=== PATIENT | female | born 1945 | race Caucasian/White ===

== ENCOUNTER 2017-09-24 16:05 | Observation (INO) ==
--- NOTE | 2017-09-24 17:20 | Emergency Department Note ---
Disposition Clinical Impression: Chest pain Disposition: Admitted As Inpatient Condition: Fair Referrals: Roxanne Agosto CNP [Primary Care Provider] - Forms: ED Satisfaction Letter Time of Disposition: 18:44 Chest Pain HPI - General Chief Complaint: ED Chest Pain Stated Complaint: CP/EMANUEL Time Seen by Provider: 09/24/17 16:20 Source: patient Limitations: no limitations Vital Signs Reviewed: Yes Nursing Notes Reviewed: Yes - History of Present Illness HPI Narrative: Complains of chest pain which started 4 days ago and was intermittent for the first 2 days and now has been constant with associated diaphoresis and dyspnea and she does not have a pleuritic aspect. Does feel a sharp pain between her shoulder blades however states her chest pain does not radiate to the shoulders. Does feel that her legs are swollen. No leg pain. No fevers or any blood in the urine or stool. Social history: Smoker, no alcohol. Family history: Positive for her father with heart disease. The patient did have ablation on September 02 and I did review this record Severity scale (1-10): 7 - Related Data Home Medications Medication Instructions Recorded Confirmed Losartan [Cozaar] 25 mg PO BID 12/18/16 09/24/17 Paroxetine HCl [Paxil] 40 mg PO HS 12/18/16 09/24/17 Ascorbate Calcium [Vitamin C] 500 mg PO DAILY 04/23/17 09/24/17 Albuterol Sulfate [Albuterol 2 puff IH QID PRN 09/02/17 09/24/17 Inhaler] Diltiazem CD (24hr) [Cardizem CD] 120 mg PO DAILY 09/02/17 09/24/17 Metoprolol Succinate 25 mg PO DAILY 09/02/17 09/24/17 Naproxen Sodium [Aleve] 220 mg PO DAILY PRN 09/02/17 09/24/17 Metformin HCl [Metformin HCl ER] 500 mg PO BID 09/24/17 09/24/17 Allergies Allergy/AdvReac Type Severity Reaction Status Date / Time acetaminophen [From Percocet] AdvReac Nausea Verified 04/23/17 09:13 codeine AdvReac Nausea Verified 04/23/17 09:13 Hydromorphone [From Dilaudid] AdvReac Dizziness Verified 04/23/17 09:13 Oxycodone [From Percocet] AdvReac Nausea Verified 04/23/17 09:13 Review of Systems: Constitutional: No fever Vision: No blurred vision ENT: No rhinorrhea Respiratory: No cough Allergic: No allergies : No blood in urine GI: No blood in stool Hematologic: No bruising Dermatologic: No skin rash Musculoskeletal: No pain in the extremities Neuro: No numbness of the extremities Chest Pain PMH - Past Medical History Medical history: Reports: atrial fibrillation, COPD, diabetes, hypertension, seizures, other Surgical history: Reports: appendectomy, cataract, cholecystectomy, hysterectomy Psychiatric history: Reports: anxiety, depression, prior suicide attempt - Social History Smoking Status: Current every day smoker Alcohol use: Reports: none Drug use: Reports: none Physical Exam CONSTITUTIONAL: Well-appearing; well-nourished; A&O X 3, in no apparent distress HEAD: Normocephalic; atraumatic EYES: PERRL, no scleral icterus NOSE: The nose is normal in appearance without rhinorrhea NECK: No JVD or distended neck veins RESP: Normal chest excursion with respiration; breath sounds clear and equal bilaterally; no wheezes, rhonchi, or rales CARD: Regular rhythm, without murmurs, rub or gallop ABD: Non-distended; non-tender, soft, without rigidity, rebound or guarding,no pulsatile mass CHEST: Patient does have pain with palpation anterior chest wall SKIN: Normal for age and race; warm and dry without diaphoresis ; no apparent lesions EXTREMITIES: Pulses are 2 plus and equal times 4 extremities, no peripheral edema or calf muscle pain - General Limitations: no limitations General appearance: alert Course Vital Signs Temperature 97.7 F 09/24/17 16:37 Pulse Rate 83 09/24/17 16:37 Respiratory Rate 18 09/24/17 16:37 Blood Pressure 170/82 09/24/17 16:37 O2 Sat by Pulse Oximetry 97 09/24/17 16:37 Temperature 97.7 F 09/24/17 16:37 Pulse Rate 81 09/24/17 17:11 Respiratory Rate 16 09/24/17 17:11 Blood Pressure 167/104 09/24/17 17:11 O2 Sat by Pulse Oximetry 96 09/24/17 17:11 Oxygen Delivery Oxygen Delivery Room Air Chest Pain - MDM Narrative Medical decision making narrative: I did review her EKG showing normal sinus rhythm rate of 82 without acute ischemic change. Patient does have labs ordered and is pending including troponin level and BNP and the patient will likely be admitted due to her pain which is exertional as well as associated diaphoresis or dyspnea and her history of smoking and family history of heart disease. 1720 I did review the patient's labs without acute abnormality and this chest x-ray is negative and the hospitalist is paged. 1828 Case was discussed with the hospitalist who accepts the patient for admission will be monitored for arrhythmia, serial troponin 1844 - Medical Records Medical records reviewed: Yes I reviewed the patient's medical records. - Lab Data Lab results reviewed: Yes I reviewed the patient's lab results. Result diagrams: 09/24/17 17:06 09/24/17 17:06 Lab Results 09/24/17 09/24/17 09/24/17 Range/Units 17:06 17:06 17:06 WBC 10.3 (4.3-11.1) K/mcL RBC 4.81 (3.82-4.97) M/mcL Hgb 13.1 (11.5-15.4) g/dL Hct 40.3 (35.3-44.9) % MCV 83.8 (83.0-100.0) fL MCH 27.2 L (28.0-33.3) pg MCHC 32.5 (31.6-35.5) g/dL RDW 13.8 (11.5-14.5) % Plt Count 236 (140-400) K/mcL MPV 9.1 L (9.4-12.4) fL Immature Gran % 0.5 (0-4) % Seg Neutrophils % 64.8 % Lymphocytes % 25.3 % Monocytes % 6.4 % Eosinophils % 2.5 % Basophils % 0.5 % Neutrophils # 6.7 (1.6-8.9) K/mcL Lymphocytes # 2.6 (0.6-4.6) K/mcL Monocytes # 0.7 (0.0-1.3) K/mcL Eosinophils # 0.3 (0.0-0.6) K/mcL Basophils # 0.1 (0.0-0.2) K/mcL PT 11.0 (9.4-12.1) Seconds INR 1.0 APTT 29.1 (26.0-36.0) Seconds Sodium 138 (136-145) mEq/L Potassium 3.7 (3.5-5.1) mEq/L Chloride 105 (98-107) mEq/L Carbon Dioxide 28 (23-29) mEq/L BUN 16 (8-23) mg/dL Creatinine 0.88 (0.60-1.20) mg/dL Est GFR ( Amer) > 60 (> 60) Est GFR (Non-Af Amer) > 60 (> 60) BUN/Creatinine Ratio 18 (6-26) Glucose 127 H (70-105) mg/dL Calculated Osmolality 289 (280-300) Calcium 9.2 (8.6-10.3) mg/dL Troponin I (< 0.04) ng/mL B-Natriuretic Peptide (Less than 100) pg/mL 09/24/17 09/24/17 Range/Units 17:06 17:06 WBC (4.3-11.1) K/mcL RBC (3.82-4.97) M/mcL Hgb (11.5-15.4) g/dL Hct (35.3-44.9) % MCV (83.0-100.0) fL MCH (28.0-33.3) pg MCHC (31.6-35.5) g/dL RDW (11.5-14.5) % Plt Count (140-400) K/mcL MPV (9.4-12.4) fL Immature Gran % (0-4) % Seg Neutrophils % % Lymphocytes % % Monocytes % % Eosinophils % % Basophils % % Neutrophils # (1.6-8.9) K/mcL Lymphocytes # (0.6-4.6) K/mcL Monocytes # (0.0-1.3) K/mcL Eosinophils # (0.0-0.6) K/mcL Basophils # (0.0-0.2) K/mcL PT (9.4-12.1) Seconds INR APTT (26.0-36.0) Seconds Sodium (136-145) mEq/L Potassium (3.5-5.1) mEq/L Chloride (98-107) mEq/L Carbon Dioxide (23-29) mEq/L BUN (8-23) mg/dL Creatinine (0.60-1.20) mg/dL Est GFR ( Amer) (> 60) Est GFR (Non-Af Amer) (> 60) BUN/Creatinine Ratio (6-26) Glucose (70-105) mg/dL Calculated Osmolality (280-300) Calcium (8.6-10.3) mg/dL Troponin I < 0.03 (< 0.04) ng/mL B-Natriuretic Peptide 38 (Less than 100) pg/mL - Radiology Data Radiology results reviewed: Yes I reviewed the patient's radiology results.
[2017-09-24 17:23] LABS: Basophils # 0.1 K/mcL (0.0-0.2); Basophils % 0.5 %; Eosinophils # 0.3 K/mcL (0.0-0.6); Eosinophils % 2.5 %; Hematocrit 40.3 % (35.3-44.9); Hemoglobin 13.1 g/dL (11.5-15.4); Immature Granulocytes % 0.5 % (0-4); Lymphocytes # 2.6 K/mcL (0.6-4.6); Lymphocytes % 25.3 %; Mean Corpuscular HGB Conc 32.5 g/dL (31.6-35.5); Mean Corpuscular Hemoglobin 27.2 pg (28.0-33.3); Mean Corpuscular Volume 83.8 fL (83.0-100.0); Mean Platelet Volume 9.1 fL (9.4-12.4); Monocytes # 0.7 K/mcL (0.0-1.3); Monocytes % 6.4 %; Neutrophils # 6.7 K/mcL (1.6-8.9); Platelet Count 236 K/mcL (140-400); Red Blood Count 4.81 M/mcL (3.82-4.97); Red Cell Distribution Width 13.8 % (11.5-14.5); Segmented Neutrophils % 64.8 %
[2017-09-24 17:33] LABS: Activated Partial Thrombo Time 29.1 Seconds (26.0-36.0)
[2017-09-24 17:51] LABS: BUN/Creatinine Ratio 18 (6-26); Blood Urea Nitrogen 16 mg/dL (8-23); Calcium 9.2 mg/dL (8.6-10.3); Carbon Dioxide 28 mEq/L (23-29); Chloride 105 mEq/L (98-107); Glucose 127 mg/dL (70-105); Osmolality,Calculated 289 (280-300); Potassium 3.7 mEq/L (3.5-5.1); Sodium 138 mEq/L (136-145); eGFR For African Americans > 60 (> 60); eGFR For Non-African Americans > 60 (> 60)
[2017-09-24] MEDS ORDERED: Ondansetron 4 MG/2 ML VIAL IVP PRN (19:13)
[2017-09-24] MEDS ORDERED: Ketorolac 30 MG/ML VIAL IVP PRN (19:13)
[2017-09-24] MEDS ORDERED: Naloxone 0.4 MG/ML INJ IVP PRN (19:13)
[2017-09-24] MEDS ORDERED: *HR* Dextrose 50 % in Water (Syg) 50 ML SYRINGE IVP PRN (19:25)
[2017-09-24] MEDS ORDERED: D5% in Water 1,000 ML IVC PRN (19:25)
[2017-09-24] MEDS ORDERED: Dextrose Gel 15 GM/37.5 ML TUBE PO PRN ×2 (19:25)
[2017-09-24] MEDS ORDERED: Nitroglycerin 0.4 MG TAB.SUBL SL PRN (19:26)
--- NOTE | 2017-09-24 19:30 | Internal Med History&Physical ---
Date of Encounter: 09/24/17 Time of Encounter: 19:27 Assessment and Plan (1) Chest pain Current visit: Yes Status: Acute Nitroglycerin as needed, the patient is allergic to opioids. Toradol as needed Follow troponins, telemetry Cardiology consult due to recent ablation/ SVT Lipid panel Omeprazole for GI prophylaxis and Lovenox for DVT prophylaxis. The patient will be admitted for observation. Full code. Time spent on this admission 40 minutes Qualifiers: Chest pain type: chest pain on breathing Qualified Code(s): R07.1 - Chest pain on breathing; R07.81 - Pleurodynia (2) SVT (supraventricular tachycardia) Current visit: Yes Status: Acute Recent ablation Continue Cardizem and metoprolol (3) Diabetes Current visit: Yes Status: Acute Insulin sliding scale Qualifiers: Diabetes mellitus type: type 2 Diabetes mellitus complication status: without complication Diabetes mellitus termite control servicer insulin use: without termite control servicer use Qualified Code(s): E11.9 - Type 2 diabetes mellitus without complications (4) COPD (chronic obstructive pulmonary disease) Current visit: Yes Status: Acute No exacerbation Qualifiers: COPD type: unspecified COPD Qualified Code(s): J44.9 - Chronic obstructive pulmonary disease, unspecified (5) Hypertension Current visit: Yes Status: Acute Stable Qualifiers: Hypertension type: essential hypertension Qualified Code(s): I10 - Essential (primary) hypertension Internal Medicine - H&P: HPI Chief complaint: Chest pain Admitted From: Emergency Dept History of present illness: Ms. Wahl is a 72 year old female with a past medical history of hypertension , depression, diabetes type 2 not insulin-dependent, recently treated on 2017 for SVT with an ablation which was performed by Dr. Coleman. The patient was doing okay up until the past 4 days when she started complaining of severe pressure-like chest pain radiating to the left shoulder blade especially earlier today that lasted for more than 30 minutes. Currently she is asymptomatic but earlier today that pain was accompanied by diaphoresis, shortness of breath, she felt cold and clammy. Glucose is 127 blood pressure, 170/82 chest x-ray does not show any acute cardiopulmonary disease. No other symptoms Past Med Surg Social Fam HX - Past Medical History Medical history: COPD (No oxygen dependent), diabetes (Not insulin-dependent), hyperlipidemia, hypertension, seizures (Not on medications and has not had seizures since 2007), other (SVT status post ablation, depression, neuropathy, tobacco abuse) Psychiatric history: anxiety, depression, prior suicide attempt - Past Surgical History Surgical History: appendectomy, cataract, cholecystectomy, hysterectomy, other ( Neuro stimulator due to chronic leg pain from neuropathy, bladder surgery, recent echocardiogram in 09/16/2017 showing an ejection fraction of 60% and mild diastolic dysfunction) - Social History Smoking Status: Current every day smoker Packs per day: One pack per day Smokeless Tobacco Status: No Alcohol use: none Drug use: none - Additional Family History Additional family history: Father with heart disease with a myocardial infarction in the 60s, mother had also myocardial infarction in her 60s and carotid stenosis Internal Medicine - H&P: Meds Losartan [Cozaar] 25 mg PO BID 12/18/16 [History] Paroxetine HCl [Paxil] 40 mg PO HS 12/18/16 [History] Ascorbate Calcium [Vitamin C] 500 mg PO DAILY 04/23/17 [History] Albuterol Sulfate [Albuterol Inhaler] 2 puff IH QID PRN 09/02/17 [History] Diltiazem CD (24hr) [Cardizem CD] 120 mg PO DAILY 09/02/17 [History] Metoprolol Succinate 25 mg PO DAILY 09/02/17 [History] Naproxen Sodium [Aleve] 220 mg PO DAILY PRN 09/02/17 [History] Metformin HCl [Metformin HCl ER] 500 mg PO BID 09/24/17 [History] 3 Allergy/AdvReac Type Severity Reaction Status Date / Time acetaminophen [From Percocet] AdvReac Nausea Verified 04/23/17 09:13 codeine AdvReac Nausea Verified 04/23/17 09:13 Hydromorphone [From Dilaudid] AdvReac Dizziness Verified 04/23/17 09:13 Oxycodone [From Percocet] AdvReac Nausea Verified 04/23/17 09:13 All Systems PM: A 10-system review of systems was performed and is negative for pertinent findings except as documented above in the HPI. Review of systems: No chest pain at the moment. Other systems out of the 10 reviewed were negative - Constitutional Vitals: Temp Pulse Resp BP Pulse Ox 97.7 F 71 20 170/90 97 09/24/17 16:37 09/24/17 18:46 09/24/17 18:46 09/24/17 18:46 09/24/17 18:46 General appearance: Present: A&O X 3 - Head Head exam: Present: atraumatic, normocephalic - Eye Eye exam: Present: PERRL, conjuntiva pink, sclera anicteric Pupils: Present: PERRL - Neck Neck exam general surgery: Present: supple, trachea midline. Absent: lymphadenopathy - Respiratory Respiratory exam: Present: CTAB. Absent: accessory muscle use, rales, rhonchi, wheezes - Cardiovascular Cardiovascular exam: Present: RRR, +S1, +S2. Absent: diastolic murmur, gallop, rubs, systolic murmur - GI/Abdominal GI/Abdominal exam: Present: normal bowel sounds, soft, no peritoneal signs. Absent: distended, tenderness - Extremities Exam Extremities exam: Present: warm, radial pulses palpable and symmetrical. Absent : calf tenderness, cyanotic, pedal edema - Neurological Exam Neurological exam: Present: CN II-XII intact, oriented X3, no focal deficits. Absent: pronater drift, facial droop, speech deficit - Skin Skin exam: Present: dry, intact Internal Med - H&P Results - Labs CBC & Chem 7: 09/24/17 17:06 09/24/17 17:06
[2017-09-24] MEDS: Insulin LISPRO 300 UNITS/3 ML VIAL SQ SCH ×2 (22:16→22:17)
[2017-09-24] MEDS: Nicotine 21 MG PATCH.TD24 TD SCH (22:17)
[2017-09-24] MEDS: *HR* Enoxaparin 40 MG/0.4 ML SYRINGE SQ SCH (22:18)
[2017-09-24] MEDS: Diltiazem CD (24hr) 120 MG CAPSULE PO SCH (22:18)
[2017-09-24] MEDS: 0.9 % Sodium Chloride 1,000 ML IVC SCH (22:26)
[2017-09-25 02:32] LABS: Hematocrit 40.1 % (35.3-44.9); Mean Corpuscular HGB Conc 32.4 g/dL (31.6-35.5); Mean Corpuscular Hemoglobin 27.7 pg (28.0-33.3); Mean Corpuscular Volume 85.3 fL (83.0-100.0); Mean Platelet Volume 9.2 fL (9.4-12.4); Platelet Count 222 K/mcL (140-400); Red Cell Distribution Width 13.8 % (11.5-14.5)
[2017-09-25 02:52] LABS: BUN/Creatinine Ratio 18 (6-26); Blood Urea Nitrogen 16 mg/dL (8-23); Calcium 8.9 mg/dL (8.6-10.3); Carbon Dioxide 30 mEq/L (23-29); Chloride 106 mEq/L (98-107); Chol/HDL Ratio 7.8 (0-4.9); Cholesterol 243 mg/dL (< 200); Glucose 175 mg/dL (70-105); HDL Cholesterol 31 mg/dL (40-59); LDL Cholesterol,Calculated 134 mg/dL (0-99); Osmolality,Calculated 293 (280-300); Phosphorous 3.7 mg/dL (2.7-4.5); Potassium 3.7 mEq/L (3.5-5.1); Sodium 139 mEq/L (136-145); Triglycerides 389 mg/dL (< 150); eGFR For African Americans > 60 (> 60); eGFR For Non-African Americans > 60 (> 60)
[2017-09-25] MEDS: *HR* Enoxaparin 40 MG/0.4 ML SYRINGE SQ SCH (05:44)
[2017-09-25] MEDS: Diltiazem CD (24hr) 120 MG CAPSULE PO SCH (09:02)
[2017-09-25] MEDS: Metoprolol XL (24 HR) Succ 25 MG TAB.ER.24H PO SCH (09:02)
--- NOTE | 2017-09-25 10:04 | Electrocardiograph Report ---
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
[2017-09-25] MEDS: Insulin LISPRO 300 UNITS/3 ML VIAL SQ SCH ×3 (12:15→21:31)
[2017-09-25] MEDS: Nicotine 21 MG PATCH.TD24 TD SCH (12:15)
--- NOTE | 2017-09-25 12:22 | Cardiology Consult Note ---
<Julianne Garcia Андрей - Last Filed: 09/25/17 12:33> Date of Encounter: 09/25/17 Time of Encounter: 12:00 Assessment and Plan (1) Chest pain Status: Acute Troponin negative x3. No ischemic ECG changes noted. Atypical chest pain symptoms. Pain free upon exam. Significant risk factors for CAD including: HTN, tobacco abuse, family hx, and DMII. Recent TTE shows preserved LVEF with normal wall motion. Would recommend Nuclear stress test. Discussed with patient and could be scheduled as outpatient, however patient prefers to stay and have test completed as inpatient. NPO after MN tomorrow evening, will plan for stress test on Wednesday. Will continue to follow. 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 Recheck limited TTE to evaluate for pericardial effusion. Discussion w patient/family: The assessment and plan as outlined above was discussed with the patient and/or family members who expressed understanding and agreement. All questions were answered. Thank you for involving us in the care of your patient. Please call with any questions. The patient will be discussed and reviewed with Dr. Capone, changes to be made accordingly. History of Present Illness Consult date: 09/25/17 Requesting physician: Alexei Coyle Consult reason: Chest pain Chief complaint: Chest pain History of present illness: Ms. Wahl is a 72 year old female with PMHx significant for DMII, tobacco use , HTN, and SVT s/p recent ablation who presented to the ED with complaints of chest pain. She reports left scapular pain with radiation to left-sided chest pain, typically lasts seconds at a time. Associated symptoms include "fluttering " in neck, discomfort is intermittent and not related to exertion or activity. Pain subsides without intervention. Discomfort has been more frequent over the past several days which prompted ED evaluation. Prior CV testin09/02/17: successful AVNRT ablation. 09/09/17: EF 60-65%, normal wall motion Past Med Surg Social Fam HX - Past Medical History Attestation: Yes The following information was validated with the patient. Source: patient Medical history: COPD, diabetes, hyperlipidemia, hypertension, seizures, other Psychiatric history: anxiety, depression, prior suicide attempt - Past Surgical History Surgical History: appendectomy, cataract, cholecystectomy, hysterectomy, other ( SVT ablation) - Social History Smoking Status: Current every day smoker Packs per day: One pack per day Smokeless Tobacco Status: No Alcohol use: none Drug use: none - Family History Mother Hx Family Cardiac Disorders: Yes (CAD) Father Hx Family Cardiac Disorders: Yes (CAD) Medications and Allergies Losartan [Cozaar] 25 mg PO BID 12/18/16 [History] Paroxetine HCl [Paxil] 40 mg PO HS 12/18/16 [History] Ascorbate Calcium [Vitamin C] 500 mg PO DAILY 04/23/17 [History] Albuterol Sulfate [Albuterol Inhaler] 2 puff IH QID PRN 09/02/17 [History] Diltiazem CD (24hr) [Cardizem CD] 120 mg PO DAILY 09/02/17 [History] Metoprolol Succinate 25 mg PO DAILY 09/02/17 [History] Naproxen Sodium [Aleve] 220 mg PO DAILY PRN 09/02/17 [History] Metformin HCl [Metformin HCl ER] 500 mg PO BID 09/24/17 [History] 3 Allergy/AdvReac Type Severity Reaction Status Date / Time acetaminophen [From Percocet] AdvReac Nausea Verified 04/23/17 09:13 codeine AdvReac Nausea Verified 04/23/17 09:13 Hydromorphone [From Dilaudid] AdvReac Dizziness Verified 04/23/17 09:13 Oxycodone [From Percocet] AdvReac Nausea Verified 04/23/17 09:13 All Systems Review: A 10-system review of systems was performed and is negative for pertinent findings except as documented above in the HPI. - Cardiovascular Cardiovascular: as per HPI Physical Examination Vital Signs, Last 4 Hours Temp Pulse Resp BP Pulse Ox 09/25/17 11:51 98.0 F 60 14 131/75 94 General: Conversant, No Apparent Distress HEENT: Atraumatic, Normocephaly, Mucus Membranes Moist Neck: No JVD, Normal carotid pulses Cardiac: Reg Rate and Rhythm, Normal S1 and S2, No Murmur Lungs: Normal Breath Sounds, No Wheeze, Rales, Rhonchi Neuro: Alert and responsive, No focal deficits noted Abdomen: Soft, Non-Tender Skin: No rashes noted on visualized skin Musculoskeletal: No Chest Wall Tenderness Extremities: No Clubbing, No Cyanosis, No Edema, Normal Pulses Results 09/25/17 01:46 09/25/17 01:46 Lab Results 09/24/17 09/25/17 09/25/17 20:13 01:46 01:46 WBC 10.4 Hgb 13.0 Hct 40.1 Plt Count 222 Sodium Potassium Chloride Carbon Dioxide BUN Creatinine Glucose Calcium Magnesium Troponin I < 0.03 < 0.03 09/25/17 09/25/17 01:46 07:17 WBC Hgb Hct Plt Count Sodium 139 Potassium 3.7 Chloride 106 Carbon Dioxide 30 H BUN 16 Creatinine 0.90 Glucose 175 H Calcium 8.9 Magnesium 2.0 Troponin I < 0.03 Active Medications Dextrose/Water (Dextrose 50% (Syg)) 25 ml IVP AD PRN PRN Reason: Hypoglycemia Stop: 03/26/18 19:26 Diltiazem HCl (Cardizem Cd) 120 mg PO DAILY [facility] Stop: 03/26/18 19:31 Last Admin: 09/25/17 09:02 Dose: 120 mg Enoxaparin Sodium (Lovenox) 40 mg SQ 0600 [facility] PRN Reason: Protocol Stop: 03/26/18 19:26 Last Admin: 09/25/17 05:44 Dose: 40 mg Glucagon (Glucagen) 1 mg IM ONCE PRN PRN Reason: Hypoglycemia Stop: 03/26/18 19:26 Glucose (Gluctose) 15 gm PO ONCE PRN PRN Reason: Hypoglycemia Stop: 03/26/18 19:26 Glucose (Gluctose) 30 gm PO ONCE PRN PRN Reason: Hypoglycemia Stop: 03/26/18 19:26 Sodium Chloride (0.9 % Sodium Chloride) 1,000 mls @ 75 mls/hr IVC .[id number] [facility] Stop: 09/25/17 21:54 Last Infusion: 09/25/17 12:16 Dose: Infused Dextrose (Dextrose 5%) 1,000 mls @ 100 mls/hr IVC .Q10H PRN PRN Reason: HYPOGLYCEMIA Stop: 03/26/18 19:26 Insulin Human Lispro (Humalog) 0 units SQ TIDAC [facility] PRN Reason: Protocol Stop: 03/26/18 19:31 Last Admin: 09/25/17 12:15 Dose: Not Given Insulin Human Lispro (Humalog) 0 units SQ HS [facility] PRN Reason: Protocol Stop: 03/26/18 21:01 Last Admin: 09/24/17 22:17 Dose: Not Given Ketorolac Tromethamine (Toradol) 30 mg IVP Q6HR PRN PRN Reason: Moderate Pain (4-6) Stop: 09/29/17 19:14 Losartan Potassium (Cozaar) 25 mg PO BID [facility] PRN Reason: Protocol Stop: 03/26/18 21:01 Last Admin: 09/25/17 09:02 Dose: 25 mg Metoprolol Succinate (Toprol Xl) 25 mg PO DAILY [facility] Stop: 03/27/18 09:01 Last Admin: 09/25/17 09:02 Dose: 25 mg Naloxone HCl (Narcan) 0.4 mg IVP Q2MIN PRN PRN Reason: Opioid Reversal Stop: 03/26/18 19:14 Nicotine (Nicoderm) 21 mg TD DAILY [facility] PRN Reason: Protocol Stop: 03/26/18 19:31 Last Admin: 09/25/17 12:15 Dose: Not Given Nitroglycerin (Nitroglycerin) 0.4 mg SL Q5MIN PRN PRN Reason: Chest Pain Stop: 03/26/18 19:27 Omeprazole (Prilosec) 40 mg PO DAILY@0630 [facility] PRN Reason: Protocol Stop: 03/27/18 06:31 Last Admin: 09/25/17 05:39 Dose: Not Given Ondansetron HCl (Zofran) 4 mg IVP Q8HR PRN PRN Reason: Nausea And Vomiting Stop: 03/26/18 19:14 Paroxetine HCl (Paxil) 40 mg PO HS [facility] Stop: 03/26/18 21:01 Last Admin: 09/24/17 22:18 Dose: 40 mg - Imaging and Cardiology Echo: pending, report reviewed - EKG Interpretation EKG results cardiology: personally reviewed Consult Discharge Plan - Plan Referrals: Roxanne Agosto CNP [Primary Care Provider] - 10/07/17 1:20 pm <Souleymane Capone - Last Filed: 09/30/17 17:40> Date of Encounter: 09/30/17 Time of Encounter: 17:20 - Attending Attestation I have personally performed a face to face evaluation on this patient. I have reviewed and agree with the care plan. History and Exam by me shows: CC: Chest pain, palpitations Pt presents with complaint of left sided chest pain, started in left shoulder, radiated into left anterior chest, lasting five to fifteen seconds, comes and goes spontaneously, feels a fluttering in her chest, with these episodes. Pt reports symptoms similar to sensations she experienced before undergoing SVT ablation, however episodes are of much shorter duration. She also describes a second chest tightness, not associated with palpitations, which occurrs at rest , feels a tightness which makes it hard to take a deep breath, lasts five to ten minutes, also comes and goes spontaneously. PE: Reviewed, agree with above IMP: 1. Chest pain - atypical, occurs at rest, however concerning, discussed stress imaging, pt agrees to proceed, will continue to monitor until imaging completed. 2. Palpitations - post AV node reentrant ablation, will monitor on tele, continue diltiazem and metoprolol. Assessment and Plan Discussion w patient/family: The assessment and plan as outlined above was discussed with the patient and/or family members who expressed understanding and agreement. All questions were answered. Thank you for involving us in the care of your patient. Please call with any questions. History of Present Illness History of present illness: Ms. Wahl is a 72 year old female All Systems Review: A 10-system review of systems was performed and is negative for pertinent findings except as documented above in the HPI. Results 09/25/17 01:46 09/25/17 01:46
--- NOTE | 2017-09-25 13:36 | Internal Med Progress Note ---
Date of Encounter: 09/25/17 Time of Encounter: 13:34 - Assessment and plan (1) Chest pain Current Visit: Yes Status: Acute Assessment and plan: Cardiology consulted. Troponin negative x3. No ischemic ECG changes noted. Atypical chest pain symptoms. Pain free this am. Significant risk factors for CAD: HTN, tobacco abuse, family history, diabetes mellitus type 2 Cardiogram completed recently revealed preserved LVEF with normal wall motion. Nitroglycerin as needed, the patient is allergic to opioids. Toradol as needed Lipid panel reviewed Cardiology recommend Nuclear stress test. They discussed with the patient and although it could could be scheduled as outpatient, the patient prefers to stay and have test completed as inpatient. NPO after midnight Wednesday evening, plan for stress test on Wednesday. 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 security monitor Urology consult Recheck limited TTE to evaluate for pericardial effusion. Continue cardizem and metoprolol (3) Diabetes Current Visit: Yes Status: Chronic Assessment and plan: Accu-Cheks with sliding scale insulin Qualifiers: Diabetes mellitus type: type 2 Diabetes mellitus complication status: without complication Diabetes mellitus detention insulin use: without terminologist use Qualified Code(s): E11.9 - Type 2 diabetes mellitus without complications (4) COPD (chronic obstructive pulmonary disease) Current Visit: Yes Status: Chronic Assessment and plan: Non-Exacerbation Continue her home medications Qualifiers: COPD type: unspecified COPD Qualified Code(s): J44.9 - Chronic obstructive pulmonary disease, unspecified (5) Hypertension Current Visit: Yes Status: Chronic Assessment and plan: Blood pressure stable continue her home medications Qualifiers: Hypertension type: essential hypertension Qualified Code(s): I10 - Essential (primary) hypertension (6) DVT prophylaxis Current Visit: Yes Status: Acute Assessment and plan: Lovenox for DVT prophylaxis - Subjective Interval history: Patient is lying in bed in no distress. She has no chest pain at this time. She described at home having a fluttering feeling accompanied by a choking feeling as well as some shortness of breath and pain in her left elbow under her shoulder blade and rib. She stated the pain waxed and waned. Denies fever , chills, headache, changes in bowel or bladder or syncope. - Constitutional Vitals: Temp Pulse Resp BP Pulse Ox 98.0 F 60 14 131/75 94 09/25/17 11:51 09/25/17 11:51 09/25/17 11:51 09/25/17 11:51 09/25/17 11:51 General appearance: Present: cooperative, A&O X 3, pleasant, no acute distress, answers questions appropriately - Head Head exam: Present: atraumatic, normocephalic - Eye Eye exam: Present: conjuntiva pink, sclera anicteric - Neck Neck exam general surgery: Present: supple, trachea midline. Absent: lymphadenopathy - Respiratory Respiratory exam: Present: CTAB. Absent: accessory muscle use, rales, rhonchi, wheezes - Cardiovascular Cardiovascular exam: Present: RRR, +S1, +S2. Absent: diastolic murmur, gallop, rubs, systolic murmur - GI/Abdominal GI/Abdominal exam: Present: normal bowel sounds, soft, no peritoneal signs. Absent: distended, tenderness - Extremities Exam Extremities exam: Present: warm, radial pulses palpable and symmetrical. Absent : calf tenderness, cyanotic, pedal edema - Neurological Exam Neurological exam: Present: oriented X3, no focal deficits. Absent: pronater drift, facial droop, speech deficit - Skin Skin exam: Present: dry, intact, warm Internal Medicine: Result - Labs CBC & Chem 7: 09/25/17 01:46 09/25/17 01:46 Labs: Short CBC 09/25/17 Range/Units 01:46 WBC 10.4 (4.3-11.1) K/mcL Hgb 13.0 (11.5-15.4) g/dL Hct 40.1 (35.3-44.9) % Plt Count 222 (140-400) K/mcL BMP 09/25/17 01:46 Sodium 139 Potassium 3.7 Chloride 106 Carbon Dioxide 30 H BUN 16 Creatinine 0.90 Glucose 175 H Calcium 8.9 Cardiac Enzymes 09/24/17 09/25/17 09/25/17 Range/Units 20:13 01:46 07:17 Troponin I < 0.03 < 0.03 < 0.03 (< 0.04) ng/mL - ABG Interpretation ABG results: PT/INR, D-dimer PT 11.0 Seconds (9.4-12.1) 09/24/17 17:06 Consult Discharge Plan - Plan Referrals: Roxanne Agosto CNP [Primary Care Provider] -
[2017-09-25] MEDS: 0.9 % Sodium Chloride 1,000 ML IVC SCH (20:11)
[2017-09-26] MEDS: *HR* Enoxaparin 40 MG/0.4 ML SYRINGE SQ SCH (05:36)
[2017-09-26] MEDS: Nicotine 21 MG PATCH.TD24 TD SCH (09:16)
[2017-09-26] MEDS: Diltiazem CD (24hr) 120 MG CAPSULE PO SCH (09:16)
[2017-09-26] MEDS: Metoprolol XL (24 HR) Succ 25 MG TAB.ER.24H PO SCH (09:16)
[2017-09-26] MEDS: Insulin LISPRO 300 UNITS/3 ML VIAL SQ SCH ×4 (09:16→21:10)
--- NOTE | 2017-09-26 12:08 | Cardiology Progress Note ---
Date of Encounter: 09/26/17 Time of Encounter: 11:30 Assessment and Plan (1) Chest pain Current Visit: Yes Status: Acute Troponin negative x3. No ischemic ECG changes noted. Atypical chest pain symptoms. Pain free upon exam. Significant risk factors for CAD including: HTN, tobacco abuse, family hx, and DMII. Recent TTE shows preserved LVEF with normal wall motion. Would recommend Nuclear stress test. Discussed with patient and could be scheduled as outpatient, however patient prefers to stay and have test completed as inpatient. NPO after MN tomorrow evening, will plan for stress test on Wednesday. Patient reports significant night sweats--will defer work-up to primary service. Will continue to follow. 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 Recheck limited TTE to evaluate for pericardial effusion. Discussion w patient/family: The assessment and plan as outlined above was discussed with the patient and/or family members who expressed understanding and agreement. All questions were answered. Thank you for involving us in the care of your patient. Please call with any questions. The patient will be discussed and reviewed with Dr. Capone, changes to be made accordingly. Subjective Principal diagnosis: Chest pain Interval history: Seen and examined. No complaints of chest pain this morning upon exam. She reports significant night sweats. Objective Vital Signs, Last 4 Hours Temp Pulse Resp BP Pulse Ox 09/26/17 11:57 98.2 F 58 16 143/75 95 General: Conversant, No Apparent Distress HEENT: Atraumatic, Normocephaly, Mucus Membranes Moist Neck: No JVD, Normal carotid pulses Cardiac: Reg Rate and Rhythm, Normal S1 and S2, No Murmur Lungs: Normal Breath Sounds, No Wheeze, Rales, Rhonchi Neuro: Alert and responsive, No focal deficits noted Abdomen: Soft, Non-Tender Skin: No rashes noted on visualized skin Musculoskeletal: No Chest Wall Tenderness Extremities: No Clubbing, No Cyanosis, No Edema, Normal Pulses Results 09/25/17 01:46 09/25/17 01:46 Active Medications Dextrose/Water (Dextrose 50% (Syg)) 25 ml IVP AD PRN PRN Reason: Hypoglycemia Stop: 03/26/18 19:26 Diltiazem HCl (Cardizem Cd) 120 mg PO DAILY [facility] Stop: 03/26/18 19:31 Last Admin: 09/26/17 09:16 Dose: 120 mg Enoxaparin Sodium (Lovenox) 40 mg SQ 0600 [facility] PRN Reason: Protocol Stop: 03/26/18 19:26 Last Admin: 09/26/17 05:36 Dose: 40 mg Glucagon (Glucagen) 1 mg IM ONCE PRN PRN Reason: Hypoglycemia Stop: 03/26/18 19:26 Glucose (Gluctose) 15 gm PO ONCE PRN PRN Reason: Hypoglycemia Stop: 03/26/18 19:26 Glucose (Gluctose) 30 gm PO ONCE PRN PRN Reason: Hypoglycemia Stop: 03/26/18 19:26 Dextrose (Dextrose 5%) 1,000 mls @ 100 mls/hr IVC .Q10H PRN PRN Reason: HYPOGLYCEMIA Stop: 03/26/18 19:26 Insulin Human Lispro (Humalog) 0 units SQ TIDAC [facility] PRN Reason: Protocol Stop: 03/26/18 19:31 Last Admin: 09/26/17 09:16 Dose: Not Given Insulin Human Lispro (Humalog) 0 units SQ HS [facility] PRN Reason: Protocol Stop: 03/26/18 21:01 Last Admin: 09/25/17 21:31 Dose: 2 units Ketorolac Tromethamine (Toradol) 30 mg IVP Q6HR PRN PRN Reason: Moderate Pain (4-6) Stop: 09/29/17 19:14 Losartan Potassium (Cozaar) 25 mg PO BID [facility] PRN Reason: Protocol Stop: 03/26/18 21:01 Last Admin: 09/26/17 09:16 Dose: 25 mg Metoprolol Succinate (Toprol Xl) 25 mg PO DAILY [facility] Stop: 03/27/18 09:01 Last Admin: 09/26/17 09:16 Dose: 25 mg Naloxone HCl (Narcan) 0.4 mg IVP Q2MIN PRN PRN Reason: Opioid Reversal Stop: 03/26/18 19:14 Nicotine (Nicoderm) 21 mg TD DAILY [facility] PRN Reason: Protocol Stop: 03/26/18 19:31 Last Admin: 09/26/17 09:16 Dose: Not Given Nitroglycerin (Nitroglycerin) 0.4 mg SL Q5MIN PRN PRN Reason: Chest Pain Stop: 03/26/18 19:27 Omeprazole (Prilosec) 40 mg PO DAILY@0630 [facility] PRN Reason: Protocol Stop: 03/27/18 06:31 Last Admin: 09/26/17 05:41 Dose: 40 mg Ondansetron HCl (Zofran) 4 mg IVP Q8HR PRN PRN Reason: Nausea And Vomiting Stop: 03/26/18 19:14 Paroxetine HCl (Paxil) 40 mg PO HS [facility] Stop: 03/26/18 21:01 Last Admin: 09/25/17 21:32 Dose: 40 mg - Imaging and Cardiology Stress Test: pending Echo: pending - EKG Interpretation EKG results cardiology: personally reviewed Consult Discharge Plan - Plan Referrals: Roxanne Agosto, MANAGER SIGN [Primary Care Provider] -
[2017-09-26] MEDS ORDERED: Ibuprofen 200 MG TABLET PO PRN (12:15)
--- NOTE | 2017-09-26 18:37 | Internal Med Progress Note ---
Date of Encounter: 09/26/17 Time of Encounter: 18:35 - Assessment and plan (1) Chest pain Current Visit: Yes Status: Acute Assessment and plan: Cardiology following Troponin negative x3. No ischemic ECG changes noted. Atypical chest pain symptoms. Chest Pain free Significant risk factors for CAD: HTN, tobacco abuse, family history, diabetes mellitus type 2 Cardiogram completed recently revealed preserved LVEF with normal wall motion. Nitroglycerin as needed, the patient is allergic to opioids. Toradol as needed Lipid panel reviewed Cardiology recommend Nuclear stress test. They discussed with the patient and although it could could be scheduled as outpatient, the patient prefers to stay and have test completed as inpatient. NPO after midnight Wednesday evening, plan for stress test on Wednesday. 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 ekg monitor Cardiology consult Recheck limited TTE to evaluate for pericardial effusion. Continue cardizem and metoprolol (3) Diabetes Current Visit: Yes Status: Chronic Assessment and plan: Accu-Cheks with sliding scale insulin to maintain control Qualifiers: Diabetes mellitus type: type 2 Diabetes mellitus complication status: without complication Diabetes mellitus ferry terminal supervisor insulin use: without ferry terminal supervisor use Qualified Code(s): E11.9 - Type 2 diabetes mellitus without complications (4) COPD (chronic obstructive pulmonary disease) Current Visit: Yes Status: Chronic Assessment and plan: Non-Exacerbation Continue home medications Qualifiers: COPD type: unspecified COPD Qualified Code(s): J44.9 - Chronic obstructive pulmonary disease, unspecified (5) Hypertension Current Visit: Yes Status: Chronic Assessment and plan: Blood pressure stable, continue her home medications Qualifiers: Hypertension type: essential hypertension Qualified Code(s): I10 - Essential (primary) hypertension (6) DVT prophylaxis Current Visit: Yes Status: Acute Assessment and plan: Continue Lovenox for DVT prophylaxis (7) Neck stiffness Current Visit: Yes Status: Acute Assessment and plan: Provide warm compresses and ibuprofen as needed - Subjective Interval history: Patient is lying in bed in no distress. She has no chest pain at this time. Her major complaint is pain on the right side of her neck radiating over under her scapula. So sometimes down into her arm. She is very tender to palpation. Denies any fever, chills, sweats, abdominal pain, changes in bowel or bladder or shortness of breath. - Constitutional Vitals: Temp Pulse Resp BP Pulse Ox 98.3 F 55 17 123/68 93 09/26/17 15:44 09/26/17 15:44 09/26/17 15:44 09/26/17 15:44 09/26/17 15:44 General appearance: Present: cooperative, A&O X 3, pleasant, no acute distress, answers questions appropriately - Head Head exam: Present: atraumatic, normocephalic - Eye Eye exam: Present: PERRL, conjuntiva pink, sclera anicteric Pupils: Present: PERRL - Neck Neck exam general surgery: Present: normal inspection, tenderness, trachea midline. Absent: full ROM, lymphadenopathy, supple - Respiratory Respiratory exam: Present: CTAB. Absent: accessory muscle use, rales, rhonchi, wheezes - Cardiovascular Cardiovascular exam: Present: RRR, +S1, +S2. Absent: diastolic murmur, gallop, rubs, systolic murmur - GI/Abdominal GI/Abdominal exam: Present: normal bowel sounds, soft, no peritoneal signs. Absent: distended, tenderness - Extremities Exam Extremities exam: Present: warm, radial pulses palpable and symmetrical. Absent : calf tenderness, cyanotic, pedal edema - Neurological Exam Neurological exam: Present: oriented X3, no focal deficits. Absent: pronater drift, facial droop, speech deficit - Skin Skin exam: Present: dry, intact Internal Medicine: Result - Labs CBC & Chem 7: 09/25/17 01:46 09/25/17 01:46 - ABG Interpretation ABG results: PT/INR, D-dimer PT 11.0 Seconds (9.4-12.1) 09/24/17 17:06 Consult Discharge Plan - Plan Referrals: Roxanne Agosto CNP [Primary Care Provider] -
[2017-09-27] MEDS: *HR* Enoxaparin 40 MG/0.4 ML SYRINGE SQ SCH (05:32)
[2017-09-27] MEDS ORDERED: Regadenoson 0.4 MG/5 ML SYRINGE IVP ONE (06:46)
[2017-09-27] MEDS: Insulin LISPRO 300 UNITS/3 ML VIAL SQ SCH (10:42)
[2017-09-27 10:57] VITALS: BP 119/59
[2017-09-27] MEDS: Metoprolol XL (24 HR) Succ 25 MG TAB.ER.24H PO SCH (11:02)
[2017-09-27] MEDS: Diltiazem CD (24hr) 120 MG CAPSULE PO SCH (11:02)
--- NOTE | 2017-09-27 13:49 | Cardiology Progress Note ---
Date of Encounter: 09/27/17 Time of Encounter: 13:46 Assessment and Plan (1) Chest pain Current Visit: Yes Status: Acute Troponin negative x3. No ischemic ECG changes noted. Atypical chest pain symptoms. Pain free upon exam. Significant risk factors for CAD including: HTN, tobacco abuse, family hx, and DMII. Stress test today perfusion imaging was negative for ischemia or infarct. Baseline ECG demonstrates diffuse ST abnormalities which may be consistent with early repolarization. Consider pericarditis in the differential. Gated EF > 70% . All prior EKGs also demonstrate early repolarization, so pericarditis is unlikely. Limited echo EF preserved. Cardiology signing off. Reconsult PRN. Follow-up as outpt as already scheduled. 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 Limited TTE no evidence of pericardial effusion. EF preserved. Discussion w patient/family: The assessment and plan as outlined above was discussed with the patient and/or family members who expressed understanding and agreement. All questions were answered. Thank you for involving us in the care of your patient. Please call with any questions. I will discuss all the above with Dr. Underwood and make changes as necessary. Subjective Principal diagnosis: Chest pain Interval history: Pt denies recurrent chest pain overnight. Does report increased stress recently. Stress test perfusion imaging was negative for ischemia or infarct. Baseline ECG demonstrates diffuse ST abnormalities which may be consistent with early repolarization. Consider pericarditis in the differential. Gated EF > 70% . All prior EKGs also demonstrate early repolarization, so pericarditis is unlikely. Limited echo EF preserved. Objective Vital Signs, Last 4 Hours Temp Pulse Resp BP Pulse Ox 09/27/17 10:56 97.9 F 85 15 119/59 92 Vital Signs Temp Pulse Resp BP Pulse Ox 09/27/17 10:56 97.9 F 85 15 119/59 92 09/27/17 03:42 97.8 F 60 16 143/78 94 09/26/17 22:51 97.9 F 52 15 112/61 92 09/26/17 19:20 97.8 F 55 16 124/52 94 09/26/17 15:44 98.3 F 55 17 123/68 93 Intake and Output 09/26/17 09/27/17 09/27/17 23:59 07:59 15:59 Intake Total 360 / 360 Output Total 350 / 350 300 / 300 Balance 360 / 360 -350 / -350 -300 / -300 Intake: Oral 360 / 360 Output: Urine 350 / 350 300 / 300 Other: Meal Dinner Percent of Meal Consumed 70% Weight 78.88 kg Blood Glucose* 169 238 Patient Weight 09/27/17 23:59 Weight 78.88 kg General: Conversant, No Apparent Distress HEENT: Atraumatic, Normocephaly, Mucus Membranes Moist Neck: No JVD, Normal carotid pulses Cardiac: Reg Rate and Rhythm, Normal S1 and S2, No Murmur Lungs: Normal Breath Sounds, No Wheeze, Rales, Rhonchi Neuro: Alert and responsive, No focal deficits noted Abdomen: Soft, Non-Tender Skin: No rashes noted on visualized skin Musculoskeletal: No Chest Wall Tenderness Extremities: No Clubbing, No Cyanosis, No Edema, Normal Pulses Results 09/25/17 01:46 09/25/17 01:46 Impressions Echocardiogram Limited Views 09/24/17 19:13 Impressions: LVEF 65%. Mild concentric left ventricular hypertrophy. Limited study, grossly normal valvular function, no doppler measurements. Findings: ECG Findings * Normal sinus rhythm. Left Ventricle * LVEF 65%. * Mild concentric left ventricular hypertrophy. * Indeterminate diastolic function. Right Ventricle * Normal right ventricular structure and function. Left Atrium * Normal left atrial size. Right Atrium * Normal right atrial size. Mitral Valve * Normal mitral valve structure and function, limited study, grossly normal Tricuspid Valve * Normal tricuspid valve structure and function. limited study, grossly normal Pulmonic Valve * Normal pulmonic valve structure and function. limited study, grossly normal Aorta * Normally sized aortic root. Pericardium * The pericardium appears normal. Aortic Valve * Trileaflet aortic valve. * Trileaflet aortic valve with normal function. limited study, grossly normal Active Medications Dextrose/Water (Dextrose 50% (Syg)) 25 ml IVP AD PRN PRN Reason: Hypoglycemia Stop: 03/26/18 19:26 Diltiazem HCl (Cardizem Cd) 120 mg PO DAILY [facility] Stop: 03/26/18 19:31 Last Admin: 09/27/17 11:02 Dose: 120 mg Enoxaparin Sodium (Lovenox) 40 mg SQ 0600 [facility] PRN Reason: Protocol Stop: 03/26/18 19:26 Last Admin: 09/27/17 05:32 Dose: 40 mg Glucagon (Glucagen) 1 mg IM ONCE PRN PRN Reason: Hypoglycemia Stop: 03/26/18 19:26 Glucose (Gluctose) 15 gm PO ONCE PRN PRN Reason: Hypoglycemia Stop: 03/26/18 19:26 Glucose (Gluctose) 30 gm PO ONCE PRN PRN Reason: Hypoglycemia Stop: 03/26/18 19:26 Dextrose (Dextrose 5%) 1,000 mls @ 100 mls/hr IVC .Q10H PRN PRN Reason: HYPOGLYCEMIA Stop: 03/26/18 19:26 Ibuprofen (Motrin) 200 mg PO Q6HR PRN; Protocol PRN Reason: FEVER/PAIN Stop: 03/28/18 12:16 Insulin Human Lispro (Humalog) 0 units SQ TIDAC [facility] [place] PRN Reason: Protocol Stop: 03/26/18 19:31 Last Admin: 09/27/17 10:42 Dose: Not Given Insulin Human Lispro (Humalog) 0 units SQ HS [facility] [place] PRN Reason: Protocol Stop: 03/26/18 21:01 Last Admin: 09/26/17 21:10 Dose: Not Given Losartan Potassium (Cozaar) 25 mg PO BID [facility] PRN Reason: Protocol Stop: 03/26/18 21:01 Last Admin: 09/27/17 11:02 Dose: 25 mg Metoprolol Succinate (Toprol Xl) 25 mg PO DAILY [facility] [place] Stop: 03/27/18 09:01 Last Admin: 09/27/17 11:02 Dose: 25 mg Naloxone HCl (Narcan) 0.4 mg IVP Q2MIN PRN PRN Reason: Opioid Reversal Stop: 03/26/18 19:14 Nitroglycerin (Nitroglycerin) 0.4 mg SL Q5MIN PRN PRN Reason: Chest Pain Stop: 03/26/18 19:27 Omeprazole (Prilosec) 40 mg PO DAILY@0630 [facility] PRN Reason: Protocol Stop: 03/27/18 06:31 Last Admin: 09/27/17 05:34 Dose: Not Given Ondansetron HCl (Zofran) 4 mg IVP Q8HR PRN PRN Reason: Nausea And Vomiting Stop: 03/26/18 19:14 Paroxetine HCl (Paxil) 40 mg PO HS [facility] Stop: 03/26/18 21:01 Last Admin: 09/26/17 21:11 Dose: 40 mg - Imaging and Cardiology Stress Test: report reviewed Echo: report reviewed - EKG Interpretation EKG results cardiology: personally reviewed, other (24 hr tele AVG HR 57, SR) Consult Discharge Plan - Plan Referrals: Roxanne Agosto, SURGICAL PATHOLOGIST [Primary Care Provider] -
--- NOTE | 2017-09-27 16:19 | Discharge Summary ---
Date of Encounter: 09/27/17 Time of Encounter: 16:17 - Discharge Diagnosis (1) Chest pain Priority: Primary Status: Acute Comments: Cardiology follows Troponin negative x3. No ischemic ECG changes noted. Atypical chest pain symptoms. Pain free this am. Significant risk factors for CAD: HTN, tobacco abuse, family history, diabetes mellitus type 2 Cardiogram completed recently revealed preserved LVEF with normal wall motion. Nitroglycerin as needed, the patient is allergic to opioids. Toradol as needed Lipid panel reviewed Cardiology recommend Nuclear stress test and echo Stress test today perfusion imaging was negative for ischemia or infarct. Baseline ECG demonstrates diffuse ST abnormalities which may be consistent with early repolarization. Consider pericarditis in the differential. Gated EF > 70% . All prior EKGs also demonstrate early repolarization, so pericarditis is unlikely. Limited echo EF preserved. Follow-up as outpt as already scheduled.. . 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 Limited TTE no evidence of pericardial effusion. EF preserved. (3) Diabetes Priority: Secondary Status: Chronic Qualifiers: Diabetes mellitus type: type 2 Diabetes mellitus complication status: without complication Diabetes mellitus manager long term care insulin use: without manager long term care use Qualified Code(s): E11.9 - Type 2 diabetes mellitus without complications (4) COPD (chronic obstructive pulmonary disease) Priority: Secondary Status: Chronic Comments: Not exacerbated continue home medication regime Qualifiers: COPD type: unspecified COPD Qualified Code(s): J44.9 - Chronic obstructive pulmonary disease, unspecified (5) Hypertension Priority: Secondary Status: Chronic Comments: Blood pressure stable, continue home medications Qualifiers: Hypertension type: essential hypertension Qualified Code(s): I10 - Essential (primary) hypertension (6) Neck stiffness Priority: Primary Status: Acute Comments: This has been resolved with ibuprofen and warm compress may continue this at home - Discharge Medications Home Medications: Losartan [Cozaar] 25 mg PO BID 12/18/16 [History] Paroxetine HCl [Paxil] 40 mg PO HS 12/18/16 [History] Ascorbate Calcium [Vitamin C] 500 mg PO DAILY 04/23/17 [History] Albuterol Sulfate [Albuterol Inhaler] 2 puff IH QID PRN 09/02/17 [History] Diltiazem CD (24hr) [Cardizem CD] 120 mg PO DAILY 09/02/17 [History] Metoprolol Succinate 25 mg PO DAILY 09/02/17 [History] Naproxen Sodium [Aleve] 220 mg PO DAILY PRN 09/02/17 [History] Metformin HCl [Metformin HCl ER] 500 mg PO BID 09/24/17 [History] Allergies/Adverse Reactions: 3 Allergy/AdvReac Type Severity Reaction Status Date / Time acetaminophen [From Percocet] AdvReac Nausea Verified 04/23/17 09:13 codeine AdvReac Nausea Verified 04/23/17 09:13 Hydromorphone [From Dilaudid] AdvReac Dizziness Verified 04/23/17 09:13 Oxycodone [From Percocet] AdvReac Nausea Verified 04/23/17 09:13 Procedures/tests Complete & Pending: Procedures Performed prior 72 hours Category Date Time Status NM robb perf SPECT multi [NM] Routine Exams 09/26/17 12:09 Taken ECG 12 lead ECG [ECG] Routine Y 09/26/17 12:31 Completed EV limited echocardiogram Routine Y 09/24/17 19:13 Completed SP pharm nuclear stress Routine Y 09/27/17 09:00 Completed Date of admission: 09/24/17 19:00 Primary care physician: LORETTA Sierra Consults: 09/24/17 19:13 Consult to Cardiology [CONS] Routine Comment: Consulting Provider: Cardiology Yana Reason for Consult: cp, recent albation Call Completed: No Discharging clinician: Ana Zelaya Anticipated date of discharge: 09/27/17 - Patient Status Disposition: Home, Self-Care Condition: Fair Overall status at discharge: patient is back to baseline - Discharge Instructions Follow Up With: Roxanne Agosto CNP [Primary Care Provider] - 10/07/17 1:20 pm Forms: Inpatient Work/School Release - Diet and Activity Activity: resume usual activities as tolerated Diet: advance to your usual diet Interval History: is chest pain-free has no shortness of breath and no complaints about her breathing. She has been up and about without any discomfort. Tolerating a diet. She is anxious to go home. She will follow-up with her PCP and pumper hand as already scheduled Hospital course: Please see details in the assessment and plan - Time Spent with Patient Total time spent providing and/or coordinating discharge services: - Constitutional Vitals: Temp Pulse Resp BP Pulse Ox 97.9 F 85 15 119/59 92 09/27/17 10:56 09/27/17 10:56 09/27/17 10:56 09/27/17 10:56 09/27/17 10:56 General appearance: Present: cooperative, A&O X 3, pleasant, no acute distress, answers questions appropriately - Head Head exam: Present: atraumatic, normocephalic - Eye Eye exam: Present: PERRL, conjuntiva pink, sclera anicteric Pupils: Present: PERRL - Neck Neck exam general surgery: Present: supple, trachea midline. Absent: lymphadenopathy - Respiratory Respiratory exam: Present: CTAB. Absent: accessory muscle use, rales, rhonchi, wheezes - Cardiovascular Cardiovascular exam: Present: RRR, +S1, +S2. Absent: diastolic murmur, gallop, rubs, systolic murmur - GI/Abdominal GI/Abdominal exam: Present: normal bowel sounds, soft, no peritoneal signs. Absent: distended, tenderness - Extremities Exam Extremities exam: Present: warm, radial pulses palpable and symmetrical. Absent : calf tenderness, cyanotic, pedal edema - Neurological Exam Neurological exam: Present: CN II-XII intact, oriented X3, no focal deficits. Absent: pronater drift, facial droop, speech deficit - Skin Skin exam: Present: dry, intact, warm
--- NOTE | 2017-09-28 17:26 | Electrocardiograph Report ---
[address] [address] Test Date: 2017-09-26 Pat Name: Brenna Wahl Department: 113 Room: 3B Gender: F Serologist: WILIAN : 1945 Requested By: Gabriela Lake Order Number: [id number] Reading MD: Eliecer Coleman Measurements Intervals Iraan Rate: 54 P: 64 CT: 161 QRS: 51 QRSD: 71 T: 61 QT: 442 QTc: 428 Interpretive Statements SINUS BRADYCARDIA Electronically Signed On 09-28-2017 17:25:03 EST by Eliecer Coleman
== END 2017-09-27 16:39 | disposition home or self-care (01) ==
LOC: EMEROO 16:05 → 3BNU 16:05
PROVIDERS: ADMIT Internal Medicine; ATTEND Registered Nurse